=== PATIENT | female | born 1930 | race Caucasian/White ===

== ENCOUNTER 2019-01-14 09:48 | Emergency (ER) | payer MEDICARE, BC ==
[~2019-01-14] VITALS: Ht 162.6 cm; Wt 54.1 kg
[~2019-01-14 09:48] MED LIST: ALEN70TA6 PO; BENA40TA55 PO; CYCL1DRO OP; DILT180C9 PO; LEVO25TA4 PO; LORA1TAB PO; RANI150C PO
--- NOTE | 2019-01-14 10:18 | NUR ---
FIRST CONTACT WITH PT. PT C/O R EAR PAIN LIGHT HEADED NOTE EARLY TODAY. PT'S AOX4. RESPS EVEN AND UNLABORED. NEURO INTACT. ALL MONITORS IN PLACE. CALL LIGHT WITHIN REACH. EDMD AT BEDSIDE TO EVALUATE AT THIS TIME.
[2019-01-14] MEDS ORDERED: CALC1TAB62 PO (10:21)
[2019-01-14] MEDS ORDERED: ASPI-496 PO (10:21)
[2019-01-14] MEDS ORDERED: FURO20TA3 PO (10:22)
--- NOTE | 2019-01-14 10:25 | NUR ---
EKG DONE AT BEDSIDE BY EMT.
[2019-01-14 10:36] LABS: BASOPHILS # (AUTO) 0.03 x10^3/uL (0-0.1); BASOPHILS % (AUTO) 0 % (0-1); EOSINOPHILS # (AUTO) 0.01 x10^3/uL (0-0.4); EOSINOPHILS % (AUTO) 0 % (1-7); LYMPHOCYTES # (AUTO) 0.83 x10^3/uL (1-3.4); LYMPHOCYTES % (AUTO) 12 % (22-44); MD NO; MEAN CORPUSCULAR HEMOGLOBIN 31.9 pg (27.0-34.8); MEAN CORPUSCULAR HGB CONC 32.9 g/dL (32.4-35.8); MEAN PLATELET VOLUME 8.1 fL (7.4-10.4); MONOCYTES # (AUTO) 0.38 x10^3/uL (0.2-0.8); MONOCYTES % (AUTO) 6 % (2-9); NEUTROPHILS # (AUTO) 5.71 x10^3/uL (1.8-6.8); NEUTROPHILS % (AUTO) 82 % (42-75); PLATELET COUNT 271 x10^3/uL (130-400); RED BLOOD COUNT 4.24 x10^6/uL (3.82-5.3); RED CELL DISTRIBUTION WIDTH 13.1 % (9.6-15.2)
[2019-01-14 10:46] LABS: ALBUMIN 3.7 g/dL (3.4-5.0); ANION GAP 5 mmol/L (5-15); CALCIUM 9.2 mg/dL (8.5-10.1); CHLORIDE 107 mmol/L (98-107); CREATININE 1.38 mg/dL (0.55-1.02)
--- NOTE | 2019-01-14 10:55 | NUR ---
PT AMB TO BR WITH STEADY GAIT.
[2019-01-14 11:21] VITALS: BP 167/76
--- NOTE | 2019-01-14 11:26 | NUR ---
PT RESTING IN BED. PT'S AOX4. RESPS EVEN AND UNLABORED. ALL MONITORS IN PLACE. CALL LIGHT WITHIN REACH.
--- NOTE | 2019-01-14 11:47 | NUR ---
PT AMB IN ROOM WITH STEADY GAIT WITHOUT DZY.
--- NOTE | 2019-01-14 12:03 | NUR ---
EDMD AT BEDSIDE TO EXPLAIN ALL RESULTS AT THIS TIME.
[2019-01-14] MEDS ORDERED: ASPIRIN 81 MG TABLET CHEW ONE (12:19)
--- NOTE | 2019-01-14 12:24 | NUR ---
PT MEDICATED PER EMAR. PT TOLERATED WELL. PT'S AOX4. RESPS EVEN AND UNLABORED.
[2019-01-14] MEDS ORDERED: ASPIRIN 81 MG TABLET CHEW PO ONE (12:30)
--- NOTE | 2019-01-14 12:36 | NUR ---
Patient given discharge instructions and they have confirmed that they understand the instructions.
== END 2019-01-14 12:36 | disposition home or self-care (01) ==
LOC: ED 10:22
DX: R42 Dizziness and giddiness (principal); H92.01 Otalgia, right ear; I10 Essential (primary) hypertension; M19.90 Unspecified osteoarthritis, unspecified site
CPT/HCPCS: 36415; 70450; 80048; 82040; 85025; 93005; 99284